=== PATIENT | female | born 1975 | race Caucasian/White ===

== ENCOUNTER → 2018-08-19 | Outpatient (CLI) | payer OTHER ==
[2018-08-19 13:05] VITALS: BP 181/109; PULSE 107; RESP 18; TEMP 98; BMI 21.2
--- NOTE | 2018-08-19 13:33 | P.GSHP ---
History of Present Illness H&P Date: 08/19/18 Chief Complaint: abnormal mammogram Mora is a 42-year-old white female who had initial screening bilateral mammograms done in January 2018. At that time it was recommended that she have a follow-up left breast mammogram in 6 months. She subsequently had a repeat left breast mammogram performed on July 152017. This revealed a 1 cm mass at 6:00 in the left breast at middle depth which was persistent. She then underwent an ultrasound of this area which revealed a 9 x 8 mm cystic lesion corresponding to the mammographic finding this had some posterior shadowing and some wall irregularity. Biopsy was recommended. Ultrasound core biopsy of the left breast at 6:00 recommended. Nothing of concern is been noted in the right breast. The patient has not noted any nodularity in her breast. She has no masses of concern. She has no complaints of any pain in her breasts. She has no complaint of any nipple discharge or skin changes of concern. Family History: 1. mother breast cancer at 76, advanced at diagnosis Hormonal history: Menarche: 11 Pregnancies: 2, first at the age of 19, two sons Breast fed: Negative periods: ablation done BCP: none hormones: none Past surgical history: 1. 2 sections with the tubal ligation 2. Abdominoplasty line past medical history Medical history: Negative Social history: smoke: socially, 1ppd in past stopped 3 years ago, smoked for about 20 years alcohol: Weekends Drugs: Negative - Constitutional Constitutional: Denies chills, Denies fever - EENT Eyes: denies blurred vision, denies pain Ears: deny: decreased hearing, tinnitus Ears, nose, mouth and throat: Denies headache, Denies sore throat - Breasts Breasts: bilateral: as per HPI - Cardiovascular Cardiovascular: Denies chest pain, Denies shortness of breath - Respiratory Respiratory: Denies cough, Denies 7 - Gastrointestinal Gastrointestinal: Denies abdominal pain, Denies diarrhea, Denies nausea, Denies vomiting - Genitourinary (Female) Genitourinary: Denies dysuria, Denies hematuria - Menstruation Menstruation: Reports as per HPI - Musculoskeletal Musculoskeletal: Denies myalgias - Integumentary Integumentary: Denies pruritus, Denies rash - Neurological Neurological: Denies numbness, Denies weakness - Psychiatric Psychiatric: Reports anxiety, Denies depression - Endocrine Endocrine: Denies fatigue, Denies weight change - Hematologic/Lymphatic Comment: none - Allergic/Immunologic Allergic/Immunologic: Reports seasonal allergies Past Medical History Past Medical History: No Reported History History of Any Multi-Drug Resistant Organisms: None Reported Past Surgical History: Section Additional Past Surgical History / Comment(s): renetta tuck Past Anesthesia/Blood Transfusion Reactions: No Reported Reaction Past Psychological History: No Psychological Hx Reported Smoking Status: Light tobacco smoker Past Alcohol Use History: Occasional Past Drug Use History: None Reported - Past Family History Mother Family Medical History: Cancer, Hypertension Additional Family Medical History / Comment(s): breast @ 76 Father Family Medical History: Hypertension Medications and Allergies Home Medications Medication Instructions Recorded Confirmed Type No Known Home Medications 08/19/18 08/19/18 History Allergies Allergy/AdvReac Type Severity Reaction Status Date / Time No Known Allergies Allergy Verified 08/19/18 13:05 Surgical - Exam Vital Signs Temp Pulse Resp BP Pulse Ox 98 F 107 H 18 181/109 98 08/19/18 12:54 08/19/18 12:54 08/19/18 12:54 08/19/18 12:54 08/19/18 12:54 BMI 21.3 - General well developed, well nourished, no distress - Eyes normal ocular movement, no icteric - ENT no hearing loss, no congestion - Neck no masses, trachea midline - Respiratory normal respiratory effort, clear to auscultation - Cardiovascular Rhythm: regular Heart Sounds: normal: S1, S2 - Abdomen Abdomen: soft - Integumentary normal turger no rash, no abnormal pigmentation - Neurologic no disoriented, no combative - Musculoskeletal normal gait, normal posture - Psychiatric oriented to time, oriented to person, oriented to place, speech is normal, memory intact Breast Exam: Right breast: Multi-positional exam fibrocystic changes breast tissue was dense but no dominant masses or nodules of concern Right axilla: Shoddy adenopathy no adenopathy of concern Left breast: Multi-positional exam dense breast no dominant masses or nodules of concern fibrocystic changes bilaterally Left axilla: No adenopathy of concern Results Ultrasound and mammogram results reviewed Assessment and Plan Assessment: Impression: 1. Radiographic abnormality left breast 2. Fibrocystic breast changes bilateral 3. Uterine ablation recently Plan: 1. Left breast ultrasound-guided core biopsy 2. Follow-up after biopsy Risk and benefits of biopsy discussed with the patient this will be scheduled in the near future. Cc: [facility] fax: [phone]
== END | disposition home or self-care (01) ==
LOC: WWCWWP 12:40
PROVIDERS: ATTEND Surgery
DX: Z53.9 Procedure and treatment not carried out, unspecified reason (principal)

== ENCOUNTER → 2018-08-25 | Day surgery (SDC) | payer OTHER ==
[2018-08-25 13:22] VITALS: RESP 16; BMI 21.2
[2018-08-25 14:16] VITALS: BP 160/89; PULSE 102; TEMP 98.1
--- NOTE | 2018-08-25 14:37 | USB ---
EXAMINATION TYPE: US biopsy breast VAD LT, MG diagnostic mammo LT wo CAD DATE OF EXAM: 08/25/2018 CLINICAL HISTORY: R92.8 ABNORMAL MAMMOGRAM. TECHNIQUE: Ultrasound guided core biopsy of left 6:00 breast. COMPARISON: NONE FINDINGS: The procedure of ultrasound guided core biopsy was explained to the patient. Benefits, alt ernatives, and risks were discussed. An informed consent was then obtained. The patient was placed in supine positioning for imaging and for the procedure. The overlying skin w as prepped and draped in usual sterile fashion. Lidocaine buffered with bicarbonate was used as anes thetic into the skin and subcutaneous tissue up to area of concern in the left 6:00 breast. A cordell w as made with surgical scalpel. Under ultrasound guidance, a 12-gauge vacuum assisted biopsy gun device was used to obtain 5 core annel ples. Following this, a biopsy clip was left in lesion. Postprocedural mammogram demonstrates appro priate clip deployment. The patient tolerated the procedure well without any immediate complication. The patient was kept in the radiology department for short stay after the procedure and then discharged home in stable condi tion. IMPRESSION: Successful, uncomplicated ultrasound guided core biopsy of area of concern in the left 6: 00 breast, full pathology results to follow.
== END | disposition home or self-care (01) ==
LOC: RADUSWWP 13:01
PROVIDERS: ATTEND Surgery
DX: D24.2 Benign neoplasm of left breast (principal)
CPT/HCPCS: 88305; 77065; 19083; A4648; J2001

== ENCOUNTER → 2018-09-02 | Outpatient (CLI) | payer OTHER ==
[2018-09-02 14:43] VITALS: BP 156/100; PULSE 101; RESP 20; TEMP 98.2; BMI 21.2
--- NOTE | 2018-09-02 14:57 | P.PN ---
Subjective Progress Note Date: 09/02/18 Principal diagnosis: Status post ultrasound-guided core biopsy of the left breast Mora is a 42-year-old white female status post left breast ultrasound core biopsy. Pathology is benign. This was performed on . The patient has no complaints at this time. Objective - Vital Signs Vital signs: Vital Signs Temp 98.2 F 09/02/18 14:37 Pulse 101 H 09/02/18 14:37 Resp 20 09/02/18 14:37 BP 156/100 09/02/18 14:37 Pulse Ox 100 09/02/18 14:37 Intake & Output 09/01/18 09/02/18 09/02/18 18:59 06:59 18:59 Weight 54.431 kg - Constitutional General appearance: Present: average body habitus, cooperative - EENT Eyes: Present: EOMI ENT: Present: hearing grossly normal - Neck Neck: Present: normal ROM - Respiratory Respiratory: bilateral: CTA - Cardiovascular Rhythm: regular Heart sounds: normal: S1, S2 - Gastrointestinal General gastrointestinal: Present: soft - Integumentary Integumentary: Present: normal turgor - Musculoskeletal Musculoskeletal: Present: gait normal - Psychiatric Psychiatric: Present: A&O x's 3, appropriate affect, intact judgment & insight - Additional findings Additional findings: Left breast: Biopsy site clean and dry no hematoma, no ecchymosis, no evidence of any infection Assessment and Plan Assessment: Impression: 1. 42-year-old white female status post ultrasound core biopsy of the left breast pathology benign Plan: 1. Repeat left breast mammogram and ultrasound in 6 months time with physician exam at that time CC: [facility]
== END ==
LOC: WWCWWP 14:31
PROVIDERS: ATTEND Surgery
DX: Z53.9 Procedure and treatment not carried out, unspecified reason (principal)

== ENCOUNTER 2019-09-22 18:36 | Emergency (ER) | payer BC, OTHER ==
[2019-09-22] MEDS ORDERED: SODIUM CHLORIDE 0.9% 1,000 ML IV STA ×2 (18:43→20:46)
--- NOTE | 2019-09-22 18:52 | ED ---
Syncope HPI - General Stated Complaint: unresponsive Time Seen by Provider: 09/22/19 18:36 Source: family, EMS, RN notes reviewed Mode of arrival: EMS - History of Present Illness Initial Comments: This is a 43-year-old female with a history of being treated for UTI for the past 3 days who was brought in by EMS due to to confusion. She apparently did have a seizure at home lasting up to a half hour. She did have a second seizure was about 6 minutes in the presence of paramedics. There was tonic-clonic activity. He was biting of the lower lip. Patient was found facedown on the floor by family members. She did have a hematoma apparently on the right occipital area of the skull. No other areas of injury reported. Patient does not have a history of seizures she does occasionally drink wine with her and occasionally smoke marijuana. She does have a history of anxiety meds currently is not taking any antianxiety medication. No reports of recent fevers chills nausea vomiting sweats or other symptoms. She has been on Macrobid apparently for 3 days for the urinary tract infection. She does have a history of tubal ligation and a D&C with ablation done earlier this past year. Her blood glucose was 280 was 1:15 per paramedics she have a temperature of 100.5. MD Complaint: seizure - Related Data Home Medications Medication Instructions Recorded Confirmed No Known Home Medications 08/19/18 09/02/18 Allergies Allergy/AdvReac Type Severity Reaction Status Date / Time No Known Allergies Allergy Verified 09/22/19 19:16 Review of Systems ROS Statement: Those systems with pertinent positive or pertinent negative responses have been documented in the HPI. ROS Other: All systems not noted in ROS Statement are negative. Limitations: ROS unobtainable due to patients medical condition Past Medical History Past Medical History: No Reported History History of Any Multi-Drug Resistant Organisms: None Reported Past Surgical History: Section Additional Past Surgical History / Comment(s): section x2, abdominalplasty age 29 Past Anesthesia/Blood Transfusion Reactions: No Reported Reaction Past Psychological History: No Psychological Hx Reported Smoking Status: Light tobacco smoker Past Alcohol Use History: Occasional Past Drug Use History: None Reported - Past Family History Mother Family Medical History: Cancer, Hypertension Additional Family Medical History / Comment(s): breast @ 76 Father Family Medical History: Hypertension General Exam - General Exam Comments Initial Comments: This is a well-developed sec appearing female who is unresponsive with sonorous respirations. No evidence of any tonic-clonic activity this time. Limitations: altered mental status, physical limitation General appearance: obtunded Head exam: Present: normocephalic (Hematoma noted on the right temporal/parietal scalp no definite step-off or crepitation) Eye exam: Present: normal appearance, PERRL ENT exam: Present: other (Laceration to the lower lip) Neck exam: Present: other (No stridor JVD or bruits c-collar is in place) Respiratory exam: Present: normal lung sounds bilaterally. Absent: respiratory distress, wheezes, rales, rhonchi, stridor Cardiovascular Exam: Present: regular rate, normal rhythm, normal heart sounds. Absent: systolic murmur, diastolic murmur, rubs, gallop, clicks GI/Abdominal exam: Present: soft, normal bowel sounds. Absent: distended, tenderness, guarding, rebound, rigid Rectal exam: Present: deferred Extremities exam: Present: normal inspection, full ROM, normal capillary refill, other (Movement of all extremities with stimulation). Absent: tenderness, pedal edema, joint swelling, calf tenderness Back exam: Present: normal inspection Neurological exam: Present: alert, altered, CN II-XII intact Psychiatric exam: Present: other (Unable to evaluate due to clinical condition) Skin exam: Present: warm, dry, intact, normal color. Absent: rash Course Vital Signs 09/22/19 09/22/19 09/22/19 19:09 19:40 21:15 Temperature 98.3 F 99.5 F 99.1 F Pulse Rate 152 H 125 H 117 H Respiratory 20 18 16 Rate Blood Pressure 138/100 159/116 129/86 O2 Sat by Pulse 100 99 99 Oximetry - Reevaluation(s) Reevaluation #1: 09/22/19 19:31 Patient is more responsive this time. Reevaluation #2: 09/22/19 20:08 CT results negative for acute findings other than a scalp hematoma did remove the cervical collar. Reevaluation the patient's oral cavity reveals edema and a superficial laceration of the right lower lip no suture repair indicated Reevaluation #3: 09/22/19 21:52 Reevaluation patient reveals her to be awake alert oriented 3 no further seizure activity. I did discuss the patient's findings with the patient and her . They do state that they drink one or 2 glasses of wine at night so this does not fit the typical picture of alcohol withdrawal seizure. Patient will remain hydrated we did discuss transfer to patient be transferred to [facility] I did discuss case Dr. Mccoy was agreed to set the patient transfer. No neurology coverage this is available at this facility currently. EKG Findings - EKG Results: EKG: interpreted by ELIZABETH (Sinus tachycardia rate 148 WA interval 128 QRS duration 76 QT since QTC 288/452) Medical Decision Making - Lab Data Result diagrams: 09/22/19 19:18 09/22/19 19:18 Lab Results 09/22/19 09/22/19 09/22/19 Range/Units 19:18 19:18 19:18 WBC 14.2 H (3.8-10.6) k/uL RBC 3.69 L (3.80-5.40) m/uL Hgb 14.4 (11.4-16.0) gm/dL Hct 41.7 (34.0-46.0) % MCV 112.9 H (80.0-100.0) fL MCH 38.9 H (25.0-35.0) pg MCHC 34.5 (31.0-37.0) g/dL RDW 12.7 (11.5-15.5) % Plt Count 230 (150-450) k/uL Neutrophils % 93 % Lymphocytes % 4 % Monocytes % 2 % Eosinophils % 0 % Basophils % 0 % Neutrophils # 13.3 H (1.3-7.7) k/uL Lymphocytes # 0.5 L (1.0-4.8) k/uL Monocytes # 0.3 (0-1.0) k/uL Eosinophils # 0.0 (0-0.7) k/uL Basophils # 0.0 (0-0.2) k/uL Manual Slide Review Performed Macrocytosis Marked A Sodium 130 L (137-145) mmol/L Potassium 3.9 (3.5-5.1) mmol/L Chloride 96 L (98-107) mmol/L Carbon Dioxide 16 L (22-30) mmol/L Anion Gap 18 mmol/L BUN 6 L (7-17) mg/dL Creatinine 0.67 (0.52-1.04) mg/dL Est GFR (CKD-EPI)AfAm >90 (>60 ml/min/1.73 sqM) Est GFR (CKD-EPI)NonAf >90 (>60 ml/min/1.73 sqM) Glucose 155 H (74-99) mg/dL POC Glucose (mg/dL) (75-99) mg/dL POC Glu Press Writer ID Plasma Lactic Acid Victoriano 9.7 H* (0.7-2.0) mmol/L Calcium 9.0 (8.4-10.2) mg/dL Magnesium 1.9 (1.6-2.3) mg/dL Total Bilirubin 1.2 (0.2-1.3) mg/dL AST 152 H (14-36) U/L ALT 58 H (4-34) U/L Alkaline Phosphatase 54 (38-126) U/L Ammonia <9 (<30) umol/L Creatine Kinase 194 H (30-135) U/L Troponin I (0.000-0.034) ng/mL Total Protein 7.1 (6.3-8.2) g/dL Albumin 4.1 (3.5-5.0) g/dL Lipase 61 (23-300) U/L Serum Alcohol <10 mg/dL 09/22/19 09/22/19 Range/Units 19:18 19:25 WBC (3.8-10.6) k/uL RBC (3.80-5.40) m/uL Hgb (11.4-16.0) gm/dL Hct (34.0-46.0) % MCV (80.0-100.0) fL MCH (25.0-35.0) pg MCHC (31.0-37.0) g/dL RDW (11.5-15.5) % Plt Count (150-450) k/uL Neutrophils % % Lymphocytes % % Monocytes % % Eosinophils % % Basophils % % Neutrophils # (1.3-7.7) k/uL Lymphocytes # (1.0-4.8) k/uL Monocytes # (0-1.0) k/uL Eosinophils # (0-0.7) k/uL Basophils # (0-0.2) k/uL Manual Slide Review Macrocytosis Sodium (137-145) mmol/L Potassium (3.5-5.1) mmol/L Chloride (98-107) mmol/L Carbon Dioxide (22-30) mmol/L Anion Gap mmol/L BUN (7-17) mg/dL Creatinine (0.52-1.04) mg/dL Est GFR (CKD-EPI)AfAm (>60 ml/min/1.73 sqM) Est GFR (CKD-EPI)NonAf (>60 ml/min/1.73 sqM) Glucose (74-99) mg/dL POC Glucose (mg/dL) 166 H (75-99) mg/dL POC Glu Press Writer ID Jing Teague Plasma Lactic Acid Victoriano (0.7-2.0) mmol/L Calcium (8.4-10.2) mg/dL Magnesium (1.6-2.3) mg/dL Total Bilirubin (0.2-1.3) mg/dL AST (14-36) U/L ALT (4-34) U/L Alkaline Phosphatase (38-126) U/L Ammonia (<30) umol/L Creatine Kinase (30-135) U/L Troponin I <0.012 (0.000-0.034) ng/mL Total Protein (6.3-8.2) g/dL Albumin (3.5-5.0) g/dL Lipase (23-300) U/L Serum Alcohol mg/dL Critical Care Time Critical Care Time: Yes Critical Care Time: 37 minutes of critical care time which includes initial presentation with history physical labs x-rays multiple reevaluation the patient. Discussed with the patient and family regarding findings discussion with the receiving facility discussed with the paramedics brought the patient in and documentation of the above. Disposition Clinical Impression: New onset seizure, Scalp hematoma, Lactic acidosis, Tachycardia, History of urinary tract infection, Contusion, lip Disposition: OTHER INSTITUTION NOT DEFINED Condition: Fair Referrals: None,Stated [Primary Care Provider] - 1-2 days - Out of Hospital Transfer - Req. Specs Out of Hospital Transfer - Requested Specifics: Other Emergency Center
[2019-09-22 19:27] LABS: Glucose,Whole Blood 166 mg/dL (75-99)
--- NOTE | 2019-09-22 19:45 | CT ---
EXAMINATION TYPE: CT brain maureen lopez DATE OF EXAM: 09/22/2019 COMPARISON: None HISTORY: Patient found face down by today CT DLP: 1300.8 mGycm Automated exposure control for dose reduction was used. Ventricles and sulci appear normal. There is no mass effect nor midline shift. There is no sign of in tracranial hemorrhage. Calvarium is intact. There is right posterior temporal and parietal scalp joey karlie. Cervical vertebra have normal alignment. Disc spaces are fairly normal. Facet joints are intact. Skul l base is intact. IMPRESSION: No acute intracranial abnormality. Right temporal parietal scalp hematoma. Normal CT scan cervical spine.
[2019-09-22] MEDS ORDERED: SODIUM CHLORIDE 0.9% 500 ML 500 ML IV STA (19:56)
[2019-09-22 19:59] LABS: Basophils % (A) 0 %; Eosinophils % (A) 0 %; HCT 41.7 % (34.0-46.0); HGB 14.4 gm/dL (11.4-16.0); Lymphocytes # (A) 0.5 k/uL (1.0-4.8); Lymphocytes % (A) 4 %; MCH 38.9 pg (25.0-35.0); MCHC 34.5 g/dL (31.0-37.0); MCV 112.9 fL (80.0-100.0); Macrocytosis Marked; Mean Platelet Volume 8.2; Monocytes # (A) 0.3 k/uL (0-1.0); Monocytes % (A) 2 %; Neutrophils # (A) 13.3 k/uL (1.3-7.7); Neutrophils % (A) 93 %; Platelet Count 230 k/uL (150-450); RBC 3.69 m/uL (3.80-5.40); RDW 12.7 % (11.5-15.5); WBC 14.2 k/uL (3.8-10.6)
[2019-09-22 20:13] LABS: African American GFR (CKD) >90 (>60 ml/min/1.73 sqM); Albumin 4.1 g/dL (3.5-5.0); Alcohol <10 mg/dL; Alkaline Phosphatase 54 U/L (38-126); Ammonia <9 umol/L (<30); Anion Gap 18 mmol/L; Blood Urea Nitrogen 6 mg/dL (7-17); Carbon Dioxide 16 mmol/L (22-30); Magnesium 1.9 mg/dL (1.6-2.3); Non-African American GFR(CKD) >90 (>60 ml/min/1.73 sqM); Potassium 3.9 mmol/L (3.5-5.1); Total Bilirubin 1.2 mg/dL (0.2-1.3); Total Protein 7.1 g/dL (6.3-8.2)
[2019-09-22 20:20] LABS: Lactic Acid, Venous 9.7 mmol/L (0.7-2.0)
[2019-09-22 20:38] LABS: AST 152 U/L (14-36); Chloride 96 mmol/L (98-107); Creatine Kinase 194 U/L (30-135); Glucose 155 mg/dL (74-99); Sodium 130 mmol/L (137-145)
[2019-09-22 20:47] LABS: ALT 58 U/L (4-34)
--- NOTE | 2019-09-22 21:11 | XR ---
EXAMINATION TYPE: XR chest 2V DATE OF EXAM: 09/22/2019 COMPARISON: NONE HISTORY: Seizure TECHNIQUE: 2 views FINDINGS: Heart and mediastinum are normal. Lungs are clear. Diaphragm is normal. Bony thorax is norm al. There are chest leads. IMPRESSION: Normal chest.
[2019-09-22] MEDS ORDERED: cefTRIAXone IN SWFI 1,000 MG/10 ML SYRINGE IVP STA (21:41)
[2019-09-22 21:52] LABS: Appearance,Urine Cloudy (Clear); Bilirubin,Urine Negative (Negative); Blood,Urine Moderate (Negative); Color,Urine Brown; Glucose,Urine (UA) Negative (Negative); Ketones,Urine Trace (Negative); Leukocyte Esterase,Urine Large (Negative); Mucus,Urine Occasional /hpf; Nitrite,Urine Negative (Negative); PH, Urine 5.5 (5.0-8.0); Protein,Urine 2+ (Negative); RBC,Urine 64 /hpf (0-5); Specific Gravity,Urine 1.015 (1.001-1.035); Squamous Epithelial Cell,Urine 1 /hpf (0-4); Urobilinogen,Urine <2.0 mg/dL (<2.0); WBC,Urine >182 /hpf (0-5)
[2019-09-22] MEDS ORDERED: levETIRAcetam IV 1,000 MG in SALINE 1 100ML.BAG IVPB STA (21:52)
[2019-09-22 21:58] LABS: Urn Cannabinoid Scrn Not Detected (NotDetected)
[2019-09-22 21:59] LABS: Amphetamine Screen,Urine Not Detected (NotDetected); Barbiturate Screen,Urine Not Detected (NotDetected); Benzodiazepines Screen,Urine Not Detected (NotDetected); Cocaine Screen,Urine Not Detected (NotDetected); Methadone Screen, Urine Not Detected (NotDetected); Opiate Screen,Urine Not Detected (NotDetected); Oxycodone Screen, Urine Not Detected (NotDetected); Phencyclidine Screen,Urine Not Detected (NotDetected); Tricyclic Antidepressant,Urine Not Detected (NotDetected)
[2019-09-22 22:13] VITALS: BP 143/98; PULSE 128; RESP 18; TEMP 101.3
[2019-09-22] MEDS ORDERED: ACETAMINOPHEN TAB 500 MG TAB PO STA (22:25)
== END 2019-09-22 22:43 | disposition short-term general hospital (02) ==
LOC: EC 18:36
DX: S00.03XA Contusion of scalp, initial encounter (principal); S01.511A Laceration without foreign body of lip, initial encounter; E87.2 Acidosis; R56.9 Unspecified convulsions; R00.0 Tachycardia, unspecified; Z87.440 Personal history of urinary (tract) infections; F17.200 Nicotine dependence, unspecified, uncomplicated; R41.0 Disorientation, unspecified; Z98.51 Tubal ligation status; Z98.890 Other specified postprocedural states; Z82.49 Family history of ischemic heart disease and other diseases of the circulatory system; X58.XXXA Exposure to other specified factors, initial encounter
CPT/HCPCS: 36415; 93005; 80053; 82140; 82550; 83605; 83690; 83735; 84484; 85025; 81001; 80306; 80320; 87086; 71046; 72125; 70450; 99291; 96365; 96375; 96361 ×2; J0696; J1953

== ENCOUNTER → 2019-10-11 | Outpatient (CLI) | payer BC ==
--- NOTE | 2019-10-11 08:35 | US ---
EXAMINATION TYPE: US abdomen limited DATE OF EXAM: 10/11/2019 COMPARISON: NONE CLINICAL HISTORY: R94.5 abnormal liver function. EXAM MEASUREMENTS: Liver Length: 13.4 cm Gallbladder Wall: 0.2 cm CBD: 0.2 cm Right Kidney: 9.3 x 3.7 x 4.3 cm Pancreas: wnl Liver: wnl Gallbladder: wnl Evidence for sonographic Dasilva's sign: CBD: wnl Right Kidney: mid area that has mass like appearance 1.5 x 1.4 x 1.8cm measuring Visualized pancreas appears within normal limits. Visualized liver fairly homogeneous. Right kidney s hows no hydronephrosis. Technologist valdes 1.5 cm oval prominent area medially right kidney that eliazar ants follow-up as solid mass cannot be excluded. Lesion is fairly isoechoic relative to adjacent cristobal ex and lobulated cortex would be in differential. Gallbladder seen without gallstones. IMPRESSION: 1. No worrisome intrahepatic mass or intrahepatic ductal dilatation. 2. Cannot exclude 1.5 cm solid mass or nonsimple cysts medially mid pole level right kidney. Follow-u p multiphase contrast-enhanced CT or MRI advised to further evaluate.
== END | disposition home or self-care (01) ==
LOC: RADUSWWP 07:16
PROVIDERS: ATTEND Family Medicine
DX: R94.5 Abnormal results of liver function studies (principal)
CPT/HCPCS: 76705

== ENCOUNTER → 2019-10-24 | Outpatient (CLI) | payer BC ==
--- NOTE | 2019-10-24 08:49 | CT ---
EXAMINATION TYPE: CT abdomen wo/w con DATE OF EXAM: 10/24/2019 COMPARISON: Ultrasound 10/11/2019 HISTORY: abnormal ultrasound CT DLP: 431 mGycm CONTRAST: CT scan of the abdomen is performed with Oral Contrast and without and with IV Contrast, patient inje cted with 100 mL of Isovue 300. FINDINGS: LUNG BASES-: No visible nodule. No infiltrate. LIVER/GB: No calcified gallstones. No space occupying hepatic lesion. Biliary tree is of normal ca liber. PANCREAS: No inflammation. No distinct mass. SPLEEN: No splenic enlargement. No lesion seen. ADRENALS: No nodule. No thickening. KIDNEYS/BLADDER: No hydronephrosis. No nephrolithiasis. No distinct renal mass. BOWEL: Normal appendix. Normal bowel caliber. Wall thickening of the colon is nonspecific and could be related to underlying ulcerative colitis. Correlate clinically. LYMPH NODES: No greater than 1cm abdominal or pelvic lymph nodes are appreciated. AORTA: No significant abnormality. OSSEOUS STRUCTURES: No significant abnormality is seen. OTHER: No significant additional abnormality is seen. IMPRESSION: 1. No suspicious renal lesion. 2. Wall thickening of the colon is nonspecific and could be related to underlying ulcerative colitis. Correlate clinically.
== END | disposition home or self-care (01) ==
LOC: RADCTMAIN 07:17
PROVIDERS: ATTEND Family Medicine
DX: N28.89 Other specified disorders of kidney and ureter (principal); R93.3 Abnormal findings on diagnostic imaging of other parts of digestive tract
CPT/HCPCS: 74170; Q9967

== ENCOUNTER → 2023-09-08 | Outpatient (CLI) | payer BC ==
--- NOTE | 2023-09-09 08:46 | MM ---
Reason for Exam: Screening (asymptomatic). Last mammogram was performed 5 year(s) and 2 month(s) ago. Patient History: Menarche at age 11. First Full-Term at age 19. 08/25/2018, Benign Core Biopsy on the left side. Mother had breast cancer, age 80. Risk Values: Jessica 5 year model risk: 2.3%. NCI Lifetime model risk: 19.8%. Prior Study Comparison: 01/26/2018 Bilateral Screening Mammogram, [facility]. 07/15/2018 Left Diagnostic Mammogram, [facility]. 08/25/2018 Left Diagnostic Mammogram, [facility]. Tissue Density: The breast tissue is heterogeneously dense. This may lower the sensitivity of mammography. Findings: Analyzed By CAD. There is no suspicious group of microcalcifications or new suspicious mass in either breast. Overall Assessment: Benign, BI-RAD 2 Management: Screening Mammogram of both breasts in 1 year. . Patient should continue monthly self-breast exams. A clinical breast exam by your physician is recommended on an annual basis. This exam should not preclude additional follow-up of suspicious palpable abnormalities. Note on Jessica scores and lifetime risk: 1. A Jessica score greater than 3% is considered moderate risk. If this is the case, consider specialist referral to assess eligibility for a risk reducing agent. 2. If overall lifetime risk for the development of breast cancer is 20% or higher, the patient may qualify for future screening with alternating mammogram and breast MRI. Electronically signed and approved by: Jeanmarie Veloz M.D. Radiologis
== END | disposition home or self-care (01) ==
LOC: RADMAMWWP 07:23
PROVIDERS: ATTEND Family Medicine
DX: Z12.31 Encounter for screening mammogram for malignant neoplasm of breast (principal); Z80.3 Family history of malignant neoplasm of breast
CPT/HCPCS: 77067

== ENCOUNTER → 2024-10-17 | Outpatient (CLI) | payer BC ==
--- NOTE | 2024-10-17 07:45 | MM ---
Reason for Exam: Screening (asymptomatic). Last mammogram was performed 1 year(s) and 1 month(s) ago. Patient History: Menarche at age 11. First Full-Term at age 19. Hormonal Contraceptives, from age 15 until age 24. 08/25/2018, Benign Core Biopsy on the left side. Mother had breast cancer, age 80. Risk Values: Jessica 5 year model risk: 2.2%. NCI Lifetime model risk: 19.1%. Prior Study Comparison: 07/15/2018 Left Diagnostic Mammogram, [facility] . 08/25/2018 Left Diagnostic Mammogram, [facility]. 09/08/2023 Bilateral MG screening mammo w CAD, [facility]. Tissue Density: There are scattered areas of fibroglandular density. Findings: Analyzed By CAD. Left breast biopsy clip. Right breast: There is no suspicious group of microcalcifications or new suspicious mass. Left breast: There is no suspicious group of microcalcifications or new suspicious mass. Overall Assessment: Benign, BI-RAD 2 Management: Screening Mammogram of both breasts in [address] [facility] will attempt to contact patient to return for supplemental views and ultrasound if indicated. Patient should continue monthly self-breast exams. A clinical breast exam by your physician is recommended on an annual basis. This exam should not preclude additional follow-up of suspicious palpable abnormalities. Note on Jessica scores and lifetime risk: 1. A Jessica score greater than 3% is considered moderate risk. If this is the case, consider specialist referral to assess eligibility for a risk reducing agent. 2. If overall lifetime risk for the development of breast cancer is 20% or higher, the patient may qualify for future screening with alternating mammogram and breast MRI. [facility], , 10/17/2024 7:42 AM. Electronically signed and approved by: Geoffrey Leahy DO
== END | disposition home or self-care (01) ==
LOC: RADMAMWWP 07:11
PROVIDERS: ATTEND Family Medicine
DX: Z12.31 Encounter for screening mammogram for malignant neoplasm of breast (principal); R92.323 Mammographic fibroglandular density, bilateral breasts; Z80.3 Family history of malignant neoplasm of breast
CPT/HCPCS: 77067